=== PATIENT | female | born 1985 | race Caucasian/White ===

== ENCOUNTER 2022-04-25 16:44 | Emergency (ER) | payer BC, MEDICAID, SELFPAY ==
[2022-04-25 16:45] VITALS: BP 159/110; PULSE 74; RESP 15; TEMP 36.7; O2SAT 98; BMI 34.4
--- NOTE | 2022-04-25 16:58 | RAD_ITS ---
EXAM: XR LEFT KNEE, 3 VIEWS CLINICAL INDICATION: fall TECHNIQUE: Three views of the left knee. This report was created using [employer] report generation technology. COMPARISON: None. FINDINGS: BONES/JOINTS: Unremarkable. No acute fracture. No subluxation. Normal alignment. Preservation of the joint space. No sclerotic or destructive changes observed. SOFT TISSUES: Unremarkable. No soft tissue swelling or gas. No radiopaque foreign body. RAD/Knee 3 Views IMPRESSION: Negative left knee x-rays. Electronically Signed: Luca Perera MD at 17:32 EST ,
--- NOTE | 2022-04-25 17:08 | EDS_ITS ---
HPI <TONI Mckeon - Last Filed: 04/25/22 19:11> History of Present Illness Chief Complaint: Lower Extremity Injury Narrative Narrative: Patient presents today with pain to her left knee and left ankle after falling down 17 of her steps at home yesterday. She said she recently ripped the carpet off of her steps and they are now slippery. She also states that her right pinky finger nail is almost ripped off along with her left middle finger nail. S he denies hitting her head, use of blood thinners, loss of consciousness, neck pain, and back pain. PFSH <TONI Mckeon - Last Filed: 04/25/22 19:11> PFSH Home Medications bupropion HCl 150 mg tablet,12 hr sustained-release (Wellbutrin SR) 150 mg PO DAILY 08/31/16 [History Last Taken Unknown] ciprofloxacin HCl 500 mg tablet 500 mg PO BID ##14 08/31/16 [Rx Last Taken Unknown] phenazopyridine 200 mg tablet (Pyridium) 200 mg PO TID ##10 08/31/16 [Rx Last Taken Unknown] Allergy/AdvReac Type Severity Reaction Status Date / Time No Known Allergies Allergy Verified 04/25/22 17:31 Surgical History (Updated 04/25/22 @ 17:30 by Lou Gauthier) Hx of section Social History Smoking Status: Current every day smoker tobacco type: e-cigarettes ROS <TONI Mckeon Last Filed: 04/25/22 19:11> ROS ED Constitutional Constitutional ED: Denies chills, fever(s) or sweats Eyes Eyes: Denies blurry vision or change in vision ENT ENT ED: Denies rhinorrhea or sore throat Cardiovascular Cardiovascular: Denies chest pain, palpitations or racing heartbeat Respiratory/Chest Respiratory/Chest: Denies cough, dyspnea or dyspnea on exertion Gastrointestinal Gastrointestinal: Denies abdominal pain, nausea or vomiting Genitourinary Genitourinary ED: Denies dysuria, hematuria or urinary frequency Musculoskeletal Musculoskeletal: Reports arthralgias and myalgias; Denies back pain or neck pain Integumentary Denies abscess, Abrasions or rash Neurologic Neurologic: Denies headache(s), paresthesias or weakness Psychiatric Psychiatric: Denies anxiety, depression or suicidal ideation EXAM <TONI Mckeon - Last Filed: 04/25/22 19:11> Physical Exam Const Vital Signs: 04/25/22 16:45 Temperature 98.0 F Temperature Source Temporal Pulse Rate 74 Respiratory Rate 15 Blood Pressure 159/110 H Blood Pressure Mean 126 Pulse Ox 98 Oxygen Delivery Method Room Air Positive well nourished and well developed General Appearance ED: well developed and NAD HEENT Reports moist mucous membranes Eyes PERRL and EOMs intact bilaterally Neck no lymphadenopathy Resp normal respiratory effort and clear to auscultation bilaterally Cardio regular rate, regular rhythm and no murmurs GI non-tender, non-distended and no masses Palpation: soft Back/Spine Cervical Spine: Negative for cervical spine tenderness Thoracic Spine / Upper Back: Negative for thoracic spinal tenderness Lumbar Spine / Lower Back: Negative for lumbar spinal tenderness Extremity Extremity Narrative: Patient does have edema to her left knee. Patient does have full range of motion in her left knee. Negative anterior drawer test, negative posterior drawer test. Patient has ecchymosis to the lateral portion of her right thigh. Pelvis is stable. No pain with palpation to the left or right greater trochanter. Full range of motion of both hips bilaterally. Left ankle mildly edematous with ecchymosis and full range of motion. DP pulses 2+ bilaterally, sensation intact in lower extremities bilaterally, capillary refill less than 3 seconds bilaterally. Neuro oriented x3, CN's II-XII intact bilaterally and no sensory deficits noted Sensorium / Orientation: alert Motor Exam: strength 5/5 throughout Psych mental status grossly normal Skin no rashes or lesions noted <Dr. Tanner Cisneros MD - Last Filed: 04/25/22 20:01> Physical Exam Const Vital Signs: 04/25/22 16:45 Temperature 98.0 F Temperature Source Temporal Pulse Rate 74 Respiratory Rate 15 Blood Pressure 159/110 H Blood Pressure Mean 126 Pulse Ox 98 Oxygen Delivery Method Room Air MDM <TONI Mckeon - Last Filed: 04/25/22 19:11> [facility] Narrative Medical decision making narrative: Patient presenting today after falling down her stairs yesterday and injuring her left knee and left ankle. Patient is non-toxic appearing and NAD. Patient denies hitting her head or any trauma to her head, therefore, I do not do not feel a head CT is necessary. Patient does have an avulsion to her right pinky fingernail as well as her left middle finger nail underneath her acrylic nails. She currently has these taped and we have encouraged her to keep the tape on that to allow protection while the new nail grows. I have obtained x-rays of her left knee and left ankle. Both of these have been reviewed and interpreted by my self and the attending ED physician and in agreement with radiologist. There is no acute fracture. There is no instability of her knee or ankle joint. There is a small area of ecchymosis to her left foot just above the medial malleolus as well as edema to the ankle. Patient is able to bear weight onto her left ankle. Patient has a grade 1 ankle sprain. I do not think that she needs to be immobilized. I have given her RICE instructions. Patient will be discharged home in stable condition. Patient comfortable with plan. Radiography Diagnostic Testing: Clinical Impression(s) from Imaging Studies Knee X-Ray 04/25/22 16:58 IMPRESSION: Negative left knee x-rays. Electronically Signed: Luca Perera MD at 17:32 EST , Ankle X-Ray 04/25/22 17:15 IMPRESSION: Negative left ankle x-rays. Electronically Signed: Luca Perera MD at 17:33 EST , <Dr. Tanner Cisneros MD - Last Filed: 04/25/22 20:01> [facility] Narrative Medical decision making narrative: Patient presenting today after falling down her stairs yesterday and injuring her left knee and left ankle. Patient is non-toxic appearing and NAD. Patient denies hitting her head or any trauma to her head, therefore, I do not do not feel a head CT is necessary. Patient does have an avulsion to her right pinky fingernail as well as her left middle finger nail underneath her acrylic nails. She currently has these taped and we have encouraged her to keep the tape on that to allow protection while the new nail grows. I have obtained x-rays of her left knee and left ankle. Both of these have been reviewed and interpreted by my self and the attending ED physician and in agreement with radiologist. There is no acute fracture. There is no instability of her knee or ankle joint. There is a small area of ecchymosis to her left foot just above the medial malleolus as well as edema to the ankle. Patient is able to bear weight onto her left ankle. Patient has a grade 1 ankle sprain. I do not think that she needs to be immobilized. I have given her RICE instructions. Patient will be discharged home in stable condition. Patient comfortable with plan. I have personally performed a face to face assessment of the patient and have reviewed the NAHUN Note. I performed a substantive portion of the visit including all aspects of the following. My bailon findings include: Patient sustained a mechanical fall, she is presenting with knee and ankle pain. There is also an avulsion of the nail. On my evaluation she has an avulsion of the nail without any other nailbed injury. She has tenderness over the left knee and left ankle but no instability. X-rays interpreted by me as normal. Patient will be discharged with reassurance Radiography Diagnostic Testing: Clinical Impression(s) from Imaging Studies Knee X-Ray 04/25/22 16:58 IMPRESSION: Negative left knee x-rays. Electronically Signed: Luca Perera MD at 17:32 EST , Ankle X-Ray 04/25/22 17:15 IMPRESSION: Negative left ankle x-rays. Electronically Signed: Luca Perera MD at 17:33 EST , Left knee x-ray interpreted by me as normal Left ankle x-ray interpreted by me as normal Discharge Plan Triage Chief Complaint: Lower Extremity Injury ED Midlevel Provider: Carmen Danielle ED Provider: Tanner Cisneros Dx/Rx/DC Orders Clinical Impression: Contusion of right thigh, Knee pain, left, Nail avulsion, finger, Fall, Contusion of ankle, left, Ankle sprain Instructions: ED RICE Prescriptions: No Action phenazopyridine [Pyridium] 200 MG tablet 200 mg PO TID Qty: 10 0RF ciprofloxacin HCl 500 MG tablet 500 mg PO BID Qty: 14 0RF bupropion HCl [Wellbutrin SR] 150 MG Tab.Er.12h 150 mg PO DAILY Primary Care Provider: Camilo Russo Referrals: Camilo Russo DO [Primary Care Provider] - 3-5 Days Activity Restrictions/Additional Instructions: Please rest your left knee and left ankle and ice it for 10 to 15 minutes 3-4 times a day for the next few days. You can take Tylenol and ibuprofen for pain. Please return if symptoms worsen. Please follow-up with PCP. Disposition Disposition: Home, Self Care Discharge Date/Time: 04/25/22 18:14
--- NOTE | 2022-04-25 17:15 | RAD_ITS ---
EXAM: XR LEFT ANKLE COMPLETE, 3 OR MORE VIEWS CLINICAL INDICATION: fall TECHNIQUE: Frontal, lateral and oblique views of the left ankle. This report was created using [employer] report generation technology. COMPARISON: None. FINDINGS: BONES/JOINTS: Unremarkable. No acute fracture. No subluxation. Normal alignment. Preservation of the joint space. No sclerotic or destructive changes observed. SOFT TISSUES: Unremarkable. No soft tissue swelling or gas. No radiopaque foreign body. RAD/Ankle min 3 Views IMPRESSION: Negative left ankle x-rays. Electronically Signed: Luca Perera MD at 17:33 EST ,
== END 2022-04-25 18:14 | disposition home or self-care (01) ==
PROVIDERS: Emergency Provider Emergency Medicine; PCP Student in an Organized Health Care Education/Training Program; Visit Provider Emergency Medicine
DX: S61.306A Unspecified open wound of right little finger with damage to nail, initial encounter (principal); S93.402A Sprain of unspecified ligament of left ankle, initial encounter; S70.11XA Contusion of right thigh, initial encounter; F17.290 Nicotine dependence, other tobacco product, uncomplicated; M25.562 Pain in left knee; W10.9XXA Fall (on) (from) unspecified stairs and steps, initial encounter
CPT/HCPCS: 73562; 73610; 99282

== ENCOUNTER 2023-04-20 17:05 | Emergency (ER) | payer MEDICAID, SELFPAY ==
[2023-04-20 17:07] VITALS: BP 141/111; PULSE 79; RESP 18; TEMP 35.9; O2SAT 99; BMI 13.5
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
--- NOTE | 2023-04-20 17:13 | RAD_ITS ---
EXAM: XR RIGHT KNEE COMPLETE, 4 OR MORE VIEWS CLINICAL INDICATION: pain TECHNIQUE: Four or more views of the right knee. COMPARISON: No relevant prior studies available. FINDINGS: BONES/JOINTS: No significant abnormality. No acute fracture. No subluxation. Normal alignment. Preservation of the joint space. No sclerotic or destructive changes observed. SOFT TISSUES: No significant abnormality. No soft tissue swelling or gas. No radiopaque foreign body. RAD/Knee 4 or More Views IMPRESSION: Negative right knee x-rays. Electronically Signed: Eagle Charles DO at 18:19 EST ,
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
[2023-04-20] MEDS: 0.9% Normal Saline (1000mL) 1,000 ML 999 ML IV (17:24)
[2023-04-20] MEDS: Ondansetron 4 MG/2 ML Vial IV (17:25)
[2023-04-20] MEDS: Morphine 4 MG/ML Syringe IV (17:25)
--- OUTSIDE RECORDS SUMMARY | 2023-04-20 17:48 | XMS RPT_ITS | CCD ---
Author Name Unknown Address [address] [facility] [address] [place] [id number] Organization [facility] Care Team Providers Care Unisaw Operator Name Role Phone Camilo Colon DO Primary Care Provider [phone] CAMILO COLON Referring Unavailable CAMILO COLON Primary Care Unavailable CAMILO COLNO Attending Unavailable CAMILO COLON Primary Care Unavailable IMELDA LAFLEUR Referring Unavailable CAMILO COLON Primary Care Unavailable CAMILO COLON Primary Care Unavailable IMELDA LAFLEUR Attending Unavailable CAMILO COLON Referring Unavailable CAMILO COLON Primary Care Unavailable CAMILO COLON Primary Care Unavailable VANESSA LUNA Referring Unavailable CAMILO COLON Primary Care Unavailable VANESSA LUNA Attending Unavailable YORDY DE ANDA Referring Unavailable CAMILO COLON Primary Care Unavailable YORDY DE ANDA Attending Unavailable Medications Current Medications Medication Drug Class(es) Dates Sig (Normalized) Sig (Original) nystatin 818490 unt/ml topical cream (1 source) Polyene Antifungal Start: 10-14-2022 End: 10-28-2022 nystatin (MYCOSTATIN) cream Indications: Candidiasis Apply to affected area twice daily for 14 days. 30 g 1 10/14/2022 10/28/2022 Active Completed/Discontinued Medications Medication Drug Class(es) Dates Sig (Normalized) Sig (Original) ascorbic acid 1000 mg oral tablet (8 sources) Vitamin C take 1 tablet by once daily Ascorbic Acid (VITAMIN C) 1,000 mg tablet Take 1,000 mg by mouth once daily. 0 Active Problems Active Problems Problem Classification Problem Date Documented Da te Episodic/Chronic Abdominal pain (2 sources) Lower abdominal pain; Translations: [Lower abdominal pain, unspecified] Onset: 09-05-2023 08-08-2023 Episodic Anxiety disorders (14 sources) Mixed anxiety and depressive disorder; Translations: [Anxiety disorder, unspecified] Onset: 04-13-2015 04-13-2015 Chronic Disorders of teeth and jaw (1 source) Toothache; Translations: [Other specified disorders of teeth and supporting structures] Episodic Immunizations and screening for infectious disease (2 sources) Tuberculosis screening status; Translations: [Encounter for screening for respiratory tuberculosis] Onset: 01-05-2023 12-12-2022 Episodic Mood disorders (1 source) Mood disorders; Translations: [Anxiety and depression] Onset: 04-13-2015 Mycoses (1 source) Candidiasis; Translations: [Candidiasis, unspecified] 10-14-2022 Episodic Other inflammatory condition of skin (1 source) Intertrigo; Translations: [Erythema intertrigo] 11-11-2022 Episodic Other inflammatory condition of skin (1 source) Erythema intertrigo; Translations: [Intertrigo] Onset: 12-09-2022 Episodic Other nutritional; endocrine; and metabolic disorders (2 sources) Excess panniculus of abdomen; Translations: [Localized adiposity] 10-14-2022 Chronic Other nutritional; endocrine; and metabolic disorders (1 source) Localized adiposity; Translations: [Pannus, abdominal] Onset: 12-09-2022 Chronic Other skin disorders (1 source) Skin finding; Translations: [Excessive and redundant skin and subcutaneous tissue] 11-11-2022 Episodic Other skin disorders (1 source) Excessive and redundant skin and subcutaneous tissue; Translations: [Excess skin] Onset: 12-09-2022 Episodic Past or Other Problems Problem Classification Problem Date Documented Da te Episodic/Chronic Coagulation and hemorrhagic disorders (1 source) Spontaneous ecchymoses; Translations: [Easy bruising] Onset: 07-29-2022 Episodic Other screening for suspected conditions (not mental disorders or infectious disease) (2 sources) Patient encounter status; Translations: [Encounter for screening for lipoid disorders] Onset: 07-22-2022 Episodic Results Test Name Value Interpretation Reference Range Facil ity Vital Signs Date Time Vital Sign Value Performing Clinician Chastity salazar 11-11-2022 14:04-0400 Body height 162.6 cm Vanessa Luna APRN.CNP Work Phone: [facility] 11-11-2022 14:04-0400 Body temperature 97.11 [degF] Vanessa Luna KETTLE TENDER.POWDER CUTTING OPERATOR Work Phone: [facility] 11-11-2022 14:04-0400 Body weight 72.12 kg Vanessa Luna KETTLE TENDER.POWDER CUTTING OPERATOR Work Phone: [facility] 11-11-2022 14:04-0400 Diastolic blood pressure 68 mm[Hg] Vanessa Luna KETTLE TENDER.POWDER CUTTING OPERATOR Work Phone: [facility] 11-11-2022 14:04-0400 Heart rate 71 /min Vanessa Luna KETTLE TENDER.POWDER CUTTING OPERATOR Work Phone: [facility] 11-11-2022 14:04-0400 Systolic blood pressure 119 mm[Hg] Vanessa Luna KETTLE TENDER.POWDER CUTTING OPERATOR Work Phone: [facility] 10-14-2022 11:15-0400 Body weight 73.48 kg Yordy De Anda MD Work Phone: [facility] 10-14-2022 11:15-0400 Diastolic blood pressure 78 mm[Hg] Yordy De Anda MD Work Phone: [facility] 10-14-2022 11:15-0400 Heart rate 72 /min Yordy De Anda MD Work Phone: [facility] 10-14-2022 11:15-0400 Respiratory rate 16 /min Yordy De Anda MD Work Phone: [facility] 10-14-2022 11:15-0400 Systolic blood pressure 116 mm[Hg] Yordy De Anda MD Work Phone: [facility] 08-23-2021 18:58-0400 Body temperature 98.29 [degF] Arline Booth APRN.POWDER CUTTING OPERATOR Work Phone: [facility] 08-23-2021 18:58-0400 Diastolic blood pressure 66 mm[Hg] Arline Booth APRN.POWDER CUTTING OPERATOR Work Phone: [facility] 08-23-2021 18:58-0400 Heart rate 77 /min Arline Booth APRN.POWDER CUTTING OPERATOR Work Phone: [facility] 08-23-2021 18:58-0400 Respiratory rate 14 /min Arline Booth APRN.POWDER CUTTING OPERATOR Work Phone: [facility] 08-23-2021 18:58-0400 SaO2% (BldA) [Mass fraction] 98 % Arline Booth APRN.POWDER CUTTING OPERATOR Work Phone: [facility] 08-23-2021 18:58-0400 Systolic blood pressure 112 mm[Hg] Arline Booth APRN.POWDER CUTTING OPERATOR Work Phone: [facility] Encounters Encounter Date Encounter Type Care Provider Facility Start: 01-29-2023 ambulatory Camilo mc DO Work Phone: [facility] Plan of Treatment Date Care Activity Detail Author Start: 2028 PAP TESTING PAP TESTING [facility] Start: 12-12-2022 End: 02-11-2023 BLOOD TB SCREEN BLOOD TB SCREEN Lab Routine Screening for tuberculosis Expected: 12/12/2022, Expires: 02/11/2023 [facility] Work Phone: Immunizations Immunization Date Immunization Notes Care Provider Jaime aguilar 08-22-2020 COVID-19 vaccine, ag e 12+ yr ([employer] - PURPLE TOP) Arline Booth APRN.POWDER CUTTING OPERATOR Work Phone: [facility] Work Phone: 02-18-2017 influenza virus vaccine, unspecified formulation Camilo Colon DO Work Phone: [facility] 02-16-2016 influenza, injectabl e, quadrivalent, contains preservative Arline Booth APRN.POWDER CUTTING OPERATOR Work Phone: [facility] 02-15-2016 influenza, seasonal, injectable Arline Booth APRN.POWDER CUTTING OPERATOR Work Phone: [facility] Work Phone: 01-03-2015 influenza, seasonal, injectable Arline Booth APRN.POWDER CUTTING OPERATOR Work Phone: [facility] Work Phone: Payers Date Payer Category Payer Medicaid [id number] 2022 Medicaid [id number] 2021 Unknown [employer] PPO [id number] 2021-Present [phone] [address] [place] [address] PPO [id number] 2021 Unknown [employer] PPO [id number] 2021-Present [phone] [address] [place] [address] PPO [id number] 2021 Unknown [id number] Social History Date Type Detail Facility Start: 08-23-2021 End: 07-29-2022 Tobacco smoking status NHIS Never smoked tobacco [facility] Start: 08-23-2021 End: 11-11-2022 Alcohol intake Current drinker of alcohol (finding) [facility] Start: 08-23-2021 End: 07-29-2022 Tobacco Comment vaping [facility] Start: 1985 Sex Assigned At Female [facility] Start: 08-13-2021 End: 08-23-2021 Exposure to SARS-CoV-2 (event) Not sure [facility] Start: 08-23-2021 End: 07-29-2022 Tobacco use and exposure Smokeless tobacco non-user [facility] Start: 06-17-2022 History SDOH Alcohol Frequency 2 [facility] Start: 06-17-2022 History SDOH Alcohol Std Drinks 1 [facility] Start: 06-17-2022 History SDOH Social Connections Phone 4 [facility] Start: 06-17-2022 History SDOH Social Connections Meetings 3 [facility] Start: 06-17-2022 History SDOH Social Connections Living 5 [facility] Start: 06-17-2022 History SDOH Physica l Activity MPS 15 [facility] Start: 06-17-2022 History SDOH Food Scarcity 98 [facility] Start: 06-17-2022 End: 10-13-2022 History of Social function [facility] Start: 06-17-2022 End: 10-13-2022 Social connection and isolation panel [facility] Do you belong to any clubs or organizations such as orthodox groups, unions, fraternal or athletic groups, or school groups? Yes [facility] Are you now , , , , never or living with a partner? [facility] How often to you hav e a drink containing alcohol? Monthly or less [facility] How many standard dr inks containing alcohol do you have on a typical day? 1 or 2 [facility] How often do you hav e 6 or more drinks on 1 occasion? Never [facility] How hard is it for y ou to pay for the very basics like food, housing, medical care, and heating Somewhat hard [facility] Adult Depression Scr eening Assessment 2 [facility] Do you feel stress - tense, restless, nervous, or anxious, or unable to sleep at night because your mind is troubled all the time - these days [OSQ] Very much [facility] (I/We) worried wheth er (my/our) food would run out before (I/we) got money to buy more. Sometimes true [facility] The food that (I/we) bought just didn't last, and (I/we) didn't have money to get more. DK or Refused [facility] At any time in the p ast 12 months, were you homeless or living in [facility] [including now]? No [facility] Start: 12-10-2020 Gender identity Identifies as female gender (finding) [facility] Start: 12-10-2020 Sexual orientation Bisexual (finding ) [facility] Clinical Notes 08-23-2021 to 01-29-2023 Telephone Encounter - Amira Barreto LPN - 01/29/2023 10:58 AM EDTTelephone Encounter - Camilo Colon DO - 01/28/2023 10:26 PM EDTTelephone Encounter - Olena Khan - 01/29/2023 7:56 AM EDT Note Date & Type Note Facility 01-29-2023 Miscellaneous Notes Spoke with pt will come pick this up tonight . Took to [facility] for fruit picker. Form signed Camilo Colon DO Physical form received and placed on Dr. Colon's desk. documented in this encounter [facility] 01-29-2023 Miscellaneous Notes Looks like form is completed. SEE TE 01/27. Olena Khan MA documented in this encounter [facility] 12-12-2022 Miscellaneous Notes Notified. Alba Reese Ma Order placed for TB blood testing Please inform patient Camilo Colon DO Patient sent my chart message requesting TB lab draw for new job. Kelsea Mayes documented in this encounter [facility] 11-11-2022 Note HNO ID: [id number] Author: Vanessa Luna APRN.GINO Service: ? Author Type: Nurse Practitioner Type: Progress Notes Filed: 11/11/2022 2:46 PM Note Text: Plastic Surgery Note CC: excess skin HPI: Emma is a 37 year old female presenting with excess skin of abdomen after massive weight loss. Patient suffers from recurrent infections under skin folds. She has tried nystatin powder that was prescribed, and she has been using this for about a month. Patient has tried applying lotion to keep moisturized when dry in the winter for years. She also has lower abdominal pain from the skin pulling, rated 8/10,and characterized as burning, throbbing, sometimes sharp . Compression helps but makes rashes worse. Patient lost approximately 100 lbs in 2011. Patient was about 223 lbs last March and started additional weight loss in which now she weighs 159 lbs and does not plan to lose any more weight. Bariatric surgery yes [] No [x] Type:......n/a.......... Date:......n/a....... Pounds lost:.......150......... Over which period:.......8 months......... Actual weight:.....159 lbs......... How long weight was stable for:.....1-2 months....... Complaints:.....excess skin, intertrigo, pain from excess skin pulling, trouble performing ADLs, trouble with fitting clothing......... Nutritional status checked? yes [x] No [] Who:......[facility].......... Date:......11/2020....... Hemoglobin A1C (%) Date Value 07/29/2022 4.7 Last 10 Encounter BP Readings: Date: BP: 11/11/2022 119/68 10/14/2022 116/78 07/29/2022 110/64 08/23/2021 112/66 12/11/2020 104/70 04/05/2019 100/64 04/04/2019 108/70 12/10/2018 94/68 06/04/2018 112/74 12/10/2017 104/70 CBC Latest Ref Rng AND Units 08/13/2016 12/11/2020 07/22/2022 WBC 3.70 - 11.00 k/uL 4.73 4.62 4.83 RBC 3.90 - 5.20 m/uL 4.56 4.08 4.38 HEMOGLOBIN 11.5 - 15.5 g/dL 13.6 12.8 13.3 HEMOGLOBIN, KEVIN 12.0 - 16.0 g/dL - - - HEMATOCRIT 36.0 - 46.0 % 41.7 37.3 39.8 MCV 80.0 - 100.0 fL 91.4 91.4 90.9 MCV, KEVIN 81 - 99 fL - - - MCH 26.0 - 34.0 pg 29.8 31.4 30.4 MCH, KEVIN 27 - 31 pg - - - MCHC 30.5 - 36.0 g/dL 32.6 34.3 33.4 MCHC, KEVIN 33 - 37 g/dL - - - RDW, KEVIN 11.5 - 14.5 % - - - RDW-CV 11.5 - 15.0 % 12.2 12.2 12.4 PLATELETS 150 - 400 k/uL 235 202 223 MPV 9.0 - 12.7 fL 12.0 11.4 11.5 NEUT%, KEVIN 42.2 - 75.2 % - - - MONO%, KEVIN 1.7 - 9.3 % - - - EOS%, KEVIN 0.0 - 6.0 % - - - BASO% % 0.4 0.4 0.6 BASO%, KEVIN 0.0 - 2.0 % - - - ABS NEUT (ANC) 1.45 - 7.50 k/uL 2.86 2.59 2.44 ABS NEUT, KEVIN 2.0 - 8.1 k/uL - - - ABS LYMP, KEVIN 1.0 - 5.5 k/uL - - - ABS LYMPH 1.00 - 4.00 k/uL 1.49 1.56 1.94 ABS MONO <0.87 k/uL 0.29 0.36 0.35 ABS MONO, KEVIN 0.1 - 1.0 k/uL - - - ABS EOS, KEVIN 0.0 - 0.2 k/uL - - - ABS EOSIN <0.46 k/uL 0.07 0.08 0.06 ABS BASO <0.11 k/uL 0.02 <0.03 0.03 ABS BASO, KEVIN 0.0 - 0.1 k/uL - - - NRBC /100 WBC 0 - 0.0 DIFF TYPE - Auto Diff Auto Diff - CMP Latest Ref Rng AND Units 09/06/2015 12/11/2020 07/22/2022 SODIUM 136 - 144 mmol/L 140 139 140 SODIUM, KEVIN 136 - 145 mmol/L - - - SODIUM, KEVIN 136 - 145 mmol/L - - - POTASSIUM 3.7 - 5.1 mmol/L 4.6 4.2 4.1 POTASSIUM, KEVIN 3.5 - 5.1 mmol/L - - - CHLORIDE 97 - 105 mmol/L 103 104 105 CHLORIDE, KEVIN 98 - 107 mmol/L - - - CO2 22 - 30 mmol/L 25 24 25 CO2, KEVIN 21.0 - 32.0 mmol/L - - - GLUCOSE 74 - 99 mg/dL 83 79 84 GLUCOSE, KEVIN 70 - 99 mg/dL - - - BUN 7 - 21 mg/dL 10 9 10 BUN, KEVIN 7 - 18 mg/dL - - - CREATININE 0.58 - 0.96 mg/dL 0.70 0.77 0.75 CREATININE, KEVIN 0.6 - 1.0 mg/dL - - - EGFR >=60 mL/min/1.73m? - - 106 EGFR-ALL OTHER RACES . >60 >60 - EGFR- - >60 >60 - PROTEIN, TOTAL 6.3 - 8.0 g/dL 7.5 7.3 7.3 TOTAL PROTEIN, KEVIN 6.4 - 8.2 g/dL - - - ALBUMIN 3.9 - 4.9 g/dL 4.6 4.3 4.6 ALBUMIN, KEVIN 3.4 - 5.0 g/dL - - - CALCIUM, KEVIN 8.5 - 10.1 mg/dL - - - CALCIUM, TOTAL 8.5 - 10.2 mg/dL 9.3 9.6 9.6 BILIRUBIN, TOTAL 0.2 - 1.3 mg/dL 0.7 0.4 0.5 AST 13 - 35 U/L 20 16 18 AST, KEVIN 15 - 37 U/L - - - ALT 7 - 38 U/L 10 11 11 ALT, KEVIN 30 - 65 U/L - - - ALKALINE PHOSPHATASE 34 - 123 U/L 55 52 59 YES NO Smoking, vaping, nicotine, cannabis [x] [] Cigarettes/ day.... Vapes daily ? Diabetes [] [x] []Type 1? []Type 2 ?Last A1c:..... Systemic inflammatory diseases [] [x] []RA []Gout []Other... Hypertension [x] [] Meds:....... Heart disease or pacemaker [] [x] ............ Family history blood clots [] [x] Personal history blood clots [] [x] Anticoagulation (aspirin, coumadin, xarelto,etc) [] [x] What........... Reason:........... Immunosuppressants (steroid, biologic meds infusion, etc) [] [x] What........... Reason:........... Pt AGAINST blood transfusion? [] [x] Patient takes vitamin C, D, and biotin. Patient works as a SENIOR FUND ACCOUNTANT at outside facility. Para: 3, h/o 3 c-sections Objective: PAST MEDICAL HISTORY Diagnosis Date Anxiety and depression Inter (more content not included)... [facility] 11-11-2022 History of Present illness Narrative Plastic Surgery Note CC: excess skin HPI: Emma is a 37 year old female presenting with excess skin of abdomen after massive weight loss. Patient suffers from recurrent infections under skin folds. She has tried nystatin powder that was prescribed, and she has been using this for about a month. Patient has tried applying lotion to keep moisturized when dry in the winter for years. She also has lower abdominal pain from the skin pulling, rated 8/10,and characterized as burning, throbbing, sometimes sharp . Compression helps but makes rashes worse. Patient lost approximately 100 lbs in 2011. Patient was about 223 lbs last March and started additional weight loss in which now she weighs 159 lbs and does not plan to lose any more weight. Bariatric surgery yes [] No [x] Type:......n/a.......... Date:......n/a....... Pounds lost:.......150......... Over which period:.......8 months......... Actual weight:.....159 lbs......... How long weight was stable for:.....1-2 months....... Complaints:.....excess skin, intertrigo, pain from excess skin pulling, trouble performing ADLs, trouble with fitting clothing......... Nutritional status checked? yes [x] No [] Who:......[facility].......... Date:......11/2020....... Hemoglobin A1C (%) Date Value 07/29/2022 4.7 Last 10 Encounter BP Readings: Date: BP: 11/11/2022 119/68 10/14/2022 116/78 07/29/2022 110/64 08/23/2021 112/66 12/11/2020 104/70 04/05/2019 100/64 04/04/2019 108/70 12/10/2018 94/68 06/04/2018 112/74 12/10/2017 104/70 CBC Latest Ref Rng & Units 08/13/2016 12/11/2020 07/22/2022 WBC 3.70 - 11.00 k/uL 4.73 4.62 4.83 RBC 3.90 - 5.20 m/uL 4.56 4.08 4.38 HEMOGLOBIN 11.5 - 15.5 g/dL 13.6 12.8 13.3 HEMOGLOBIN, KEVIN 12.0 - 16.0 g/dL - - - HEMATOCRIT 36.0 - 46.0 % 41.7 37.3 39.8 MCV 80.0 - 100.0 fL 91.4 91.4 90.9 MCV, KEVIN 81 - 99 fL - - - MCH 26.0 - 34.0 pg 29.8 31.4 30.4 MCH, KEVIN 27 - 31 pg - - - MCHC 30.5 - 36.0 g/dL 32.6 34.3 33.4 MCHC, KEVIN 33 - 37 g/dL - - - RDW, KEVIN 11.5 - 14.5 % - - - RDW-CV 11.5 - 15.0 % 12.2 12.2 12.4 PLATELETS 150 - 400 k/uL 235 202 223 MPV 9.0 - 12.7 fL 12.0 11.4 11.5 NEUT%, KEVIN 42.2 - 75.2 % - - - MONO%, KEVIN 1.7 - 9.3 % - - - EOS%, KEVIN 0.0 - 6.0 % - - - BASO% % 0.4 0.4 0.6 BASO%, KEVIN 0.0 - 2.0 % - - - ABS NEUT (ANC) 1.45 - 7.50 k/uL 2.86 2.59 2.44 ABS NEUT, KEVIN 2.0 - 8.1 k/uL - - - ABS LYMP, KEVIN 1.0 - 5.5 k/uL - - - ABS LYMPH 1.00 - 4.00 k/uL 1.49 1.56 1.94 ABS MONO <0.87 k/uL 0.29 0.36 0.35 ABS MONO, KEVIN 0.1 - 1.0 k/uL - - - ABS EOS, KEVIN 0.0 - 0.2 k/uL - - - ABS EOSIN <0.46 k/uL 0.07 0.08 0.06 ABS BASO <0.11 k/uL 0.02 <0.03 0.03 ABS BASO, KEVIN 0.0 - 0.1 k/uL - - - NRBC /100 WBC 0 - 0.0 DIFF TYPE - Auto Diff Auto Diff - CMP Latest Ref Rng & Units 09/06/2015 12/11/2020 07/22/2022 SODIUM 136 - 144 mmol/L 140 139 140 SODIUM, KEVIN 136 - 145 mmol/L - - - SODIUM, KEVIN 136 - 145 mmol/L - - - POTASSIUM 3.7 - 5.1 mmol/L 4.6 4.2 4.1 POTASSIUM, KEVIN 3.5 - 5.1 mmol/L - - - CHLORIDE 97 - 105 mmol/L 103 104 105 CHLORIDE, KEVIN 98 - 107 mmol/L - - - CO2 22 - 30 mmol/L 25 24 25 CO2, KEVIN 21.0 - 32.0 mmol/L - - - GLUCOSE 74 - 99 mg/dL 83 79 84 GLUCOSE, KEVIN 70 - 99 mg/dL - - - BUN 7 - 21 mg/dL 10 9 10 BUN, KEVIN 7 - 18 mg/dL - - - CREATININE 0.58 - 0.96 mg/dL 0.70 0.77 0.75 CREATININE, KEVIN 0.6 - 1.0 mg/dL - - - EGFR >=60 mL/min/1.73m - - 106 EGFR-ALL OTHER RACES . >60 >60 - EGFR- - >60 >60 - PROTEIN, TOTAL 6.3 - 8.0 g/dL 7.5 7.3 7.3 TOTAL PROTEIN, KEVIN 6.4 - 8.2 g/dL - - - ALBUMIN 3.9 - 4.9 g/dL 4.6 4.3 4.6 ALBUMIN, KEVIN 3.4 - 5.0 g/dL - - - CALCIUM, KEVIN 8.5 - 10.1 mg/dL - - - CALCIUM, TOTAL 8.5 - 10.2 mg/dL 9.3 9.6 9.6 BILIRUBIN, TOTAL 0.2 - 1.3 mg/dL 0.7 0.4 0.5 AST 13 - 35 U/L 20 16 18 AST, KEVIN 15 - 37 U/L - - - ALT 7 - 38 U/L 10 11 11 ALT, KEVIN 30 - 65 U/L - - - ALKALINE PHOSPHATASE 34 - 123 U/L 55 52 59 YES NO Smoking, vaping, nicotine, cannabis [x] [] Cigarettes/ day.... Vapes daily ? Diabetes [] [x] []Type 1? []Type 2 ?Last A1c:..... Systemic inflammatory diseases [] [x] []RA []Gout []Other... Hypertension [x] [] Meds:....... Heart disease or pacemaker [] [x] ............ Family history blood clots [] [x] Personal history blood clots [] [x] Anticoagulation (aspirin, coumadin, xarelto,etc) [] [x] What........... Reason:........... Immunosuppressants (steroid, biologic meds infusion, etc) [] [x] What........... Reason:........... Pt AGAINST blood transfusion? [] [x] Patient takes vitamin C, D, and biotin. Patient works as a SENIOR FUND ACCOUNTANT at outside facility. Para: 3, h/o 3 c-sections Objective: PAST MEDICAL HISTORY Diagnosis Date Anxiety and depression Interstitial cystitis 2009 PAST SURGICAL HISTORY Procedure Laterality Date DELIVERY ONLY 2005 , low cervical DELIVERY ONLY 2006 , low cervical DELIVERY ONLY 2012 EXPLORATORY LAPAROTOMY, CELIOTOMY-SP 2011 Current Outpatient Medications Medication Sig Dispense Refill Ascorbic Acid (VITAMIN C) 1,000 mg tablet Take 1,000 mg by mouth once daily. cholecalciferol (VITAMIN D) 1,000 unit tab tablet Take 2,000 Units by mouth once daily. escitalopram oxalate (LEXAPRO) 10 mg tablet Take 1 tablet by mouth once daily. 1 tablet PO once daily 90 tablet 3 buPROPion XL (WELLBUTRIN XL) 300 mg 24 hr tablet Take 1 tablet by mouth once daily. 90 tablet 3 No current facility-administered medications for this visit. BP 119/68 Pulse 71 Temp 36.2 C (97.1 F) Ht 162.6 cm (5' 4 ) Wt 72.1 kg (159 lb) LMP 08/13/2021 BMI 27.29 kg/m ALLERGIES No Known Allergies ROS: All negative except for: GENERAL: []weight loss []malaise []fevers HEENT: []frequent or significant headaches []changes in hearing []change in vision []nose bleeds []other nasal problems NECK: []lumps []goiter []pain and significant neck swelling RESPIRATORY: []cough []hemoptysis []wheezing []COPD []dyspnea []shortness of breath CARDIOVASCULAR: []chest pain []leg swelling []hypertension []CHF []palpitations GI: []nausea []vomiting []diarrhea MUSCULOSKELETAL: see HPI SKIN: [] skin lesions []rash []itching PSYCH: []sleep disturbance []mood disorder []recent psychosocial stressors HEMATOLOGY/LYMPHOLOGY: []prolonged bleeding []bruising easily []swollen nodes ENDOCRINE: []cold intolerance []heat intolerance []polyuria []polydipsia []goiter PE: Alert, awake in NAD Excess skin of upper and lower abdominal quadrants Striae of upper quadrants present Suprapubic scar from previous well healed Rectus diastasis present No tenderness upon palpation A/P: Excess skin Counseled on smoking cessation. Discussed christina reina abdominoplasty including procedure, benefits vs risks, and post op course. Abdominal CT ordered. Pre op labs ordered. Photos taken. Will submit when nicotine test is negative. Patient is going to notify office when test is negative. 30 Minutes total visit spent face to face with patient. Greater than 50% of the time was spent for counseling and coordination of care, discussing treatment options and recommendations. Vanessa Luna APRN.CNP November 11, 2022 2:19 PM documented in this encounter [facility] 10-14-2022 Note HNO ID: [id number] Author: Yordy De Anda MD Service: ? Author Type: Physician Type: Progress Notes Filed: 10/14/2022 8:27 PM Note Text: Chief Complaint Patient presents with: Consult HPI Emma Poon is a 37 year old female who presents here today for weight loss/needing skin removal referral. Office visit - For about the past 6 months patient has been doing intermittent fasting and has lost just over 50 lbs. With the weight loss she now has extra skin on the lower abdomen and has been getting yeast infections under the skin folds. Has been getting sores and worse with the hotter weather. Past medical history, appointments, medications, allergies reviewed. Previous Medical History PAST MEDICAL HISTORY Diagnosis Date Anxiety and depression Interstitial cystitis 2009 Previous Surgical History PAST SURGICAL HISTORY Procedure Laterality Date DELIVERY ONLY 2004 , low cervical DELIVERY ONLY 2006 , low cervical DELIVERY ONLY 2013 EXPLORATORY LAPAROTOMY, CELIOTOMY-SP 2012 Family History FAMILY HISTORY Problem Relation Age of Onset None Mother Kidney failure Mother 62 None Father Cancer Maternal Grandfather throat Emphysema Paternal Grandfather Patient Allergies ALLERGIES No Known Allergies Current Medications Current Outpatient Medications on File Prior to Visit Medication Sig Ascorbic Acid (VITAMIN C) 1,000 mg tablet Take 1,000 mg by mouth once daily. cholecalciferol (VITAMIN D) 1,000 unit tab tablet Take 2,000 Units by mouth once daily. escitalopram oxalate (LEXAPRO) 10 mg tablet Take 1 tablet by mouth once daily. 1 tablet PO once daily buPROPion XL (WELLBUTRIN XL) 300 mg 24 hr tablet Take 1 tablet by mouth once daily. No current facility-administered medications on file prior to visit. Social History Social History Tobacco Use Smoking status: Never Smokeless tobacco: Never Tobacco comments: vaping Substance Use Topics Alcohol use: Yes Drug use: No Review of Symptoms REVIEW OF SYSTEMS See HPI EXAM: BP 116/78 (BP Site: Left Arm, BP Position: Sitting, BP Cuff Size: Regular Adult) Pulse 72 Resp 16 Wt 73.5 kg (162 lb) LMP 08/13/2021 BMI 28.00 kg/m? General Appearance: Well appearing, alert, in no acute distress, well-hydrated, well nourished.. Skin: Skin color, texture, turgor normal, - has mild yeast infection on the lower edge of the panus. Abdomen: Abdomen soft, non-tender. Bowel sounds normal. Health Maintenance List HEPATITIS B(1 of 3 - 3-dose series) Never done HEPATITIS C SCREENING Never done HIV SCREENING Never done DTAP,TDAP,TD(1 - Tdap) Never done HPV TESTING Never done PAP TESTING due on 06/18/2017 COVID-19 VACCINE(3 - Pfizer series) due on 11/07/2020 INFLUENZA(1) due on 12/05/2022 HPV VACCINE Aged Out Data reviewed A/P ASSESSMENT/PLAN: 1. Pannus, abdominal - ICD9: 278.1, ICD10: E65 (primary diagnosis) - CONSULT TO PLASTIC SURGERY 2. Candidiasis - ICD9: 112.9, ICD10: B37.9 Tx with - NYSTATIN 100,000 UNIT/GRAM TOPICAL CREAM Requested Prescriptions Signed Prescriptions Disp Refills nystatin (MYCOSTATIN) cream 30 g 1 Sig: Apply to affected area twice daily for 14 days. F/u as needed. Yordy De Anda MD [facility] 10-14-2022 History of Present illness Narrative Chief Complaint Patient presents with: Consult HPI Emma Poon is a 37 year old female who presents here today for weight loss/needing skin removal referral. Office visit - For about the past 6 months patient has been doing intermittent fasting and has lost just over 50 lbs. With the weight loss she now has extra skin on the lower abdomen and has been getting yeast infections under the skin folds. Has been getting sores and worse with the hotter weather. Past medical history, appointments, medications, allergies reviewed. Previous Medical History PAST MEDICAL HISTORY Diagnosis Date Anxiety and depression Interstitial cystitis 2009 Previous Surgical History PAST SURGICAL HISTORY Procedure Laterality Date DELIVERY ONLY 2004 , low cervical DELIVERY ONLY 2006 , low cervical DELIVERY ONLY 2013 EXPLORATORY LAPAROTOMY, CELIOTOMY-SP 2012 Family History FAMILY HISTORY Problem Relation Age of Onset None Mother Kidney failure Mother 62 None Father Cancer Maternal Grandfather throat Emphysema Paternal Grandfather Patient Allergies ALLERGIES No Known Allergies Current Medications Current Outpatient Medications on File Prior to Visit Medication Sig Ascorbic Acid (VITAMIN C) 1,000 mg tablet Take 1,000 mg by mouth once daily. cholecalciferol (VITAMIN D) 1,000 unit tab tablet Take 2,000 Units by mouth once daily. escitalopram oxalate (LEXAPRO) 10 mg tablet Take 1 tablet by mouth once daily. 1 tablet PO once daily buPROPion XL (WELLBUTRIN XL) 300 mg 24 hr tablet Take 1 tablet by mouth once daily. No current facility-administered medications on file prior to visit. Social History Social History Tobacco Use Smoking status: Never Smokeless tobacco: Never Tobacco comments: vaping Substance Use Topics Alcohol use: Yes Drug use: No Review of Symptoms REVIEW OF SYSTEMS See HPI EXAM: BP 116/78 (BP Site: Left Arm, BP Position: Sitting, BP Cuff Size: Regular Adult) Pulse 72 Resp 16 Wt 73.5 kg (162 lb) LMP 08/13/2021 BMI 28.00 kg/m General Appearance: Well appearing, alert, in no acute distress, well-hydrated, well nourished.. Skin: Skin color, texture, turgor normal, - has mild yeast infection on the lower edge of the panus. Abdomen: Abdomen soft, non-tender. Bowel sounds normal. Health Maintenance List HEPATITIS B(1 of 3 - 3-dose series) Never done HEPATITIS C SCREENING Never done HIV SCREENING Never done DTAP,TDAP,TD(1 - Tdap) Never done HPV TESTING Never done PAP TESTING due on 06/18/2017 COVID-19 VACCINE(3 - Pfizer series) due on 11/07/2020 INFLUENZA(1) due on 12/05/2022 HPV VACCINE Aged Out Data reviewed A/P ASSESSMENT/PLAN: 1. Pannus, abdominal - ICD9: 278.1, ICD10: E65 (primary diagnosis) - CONSULT TO PLASTIC SURGERY 2. Candidiasis - ICD9: 112.9, ICD10: B37.9 Tx with - NYSTATIN 100,000 UNIT/GRAM TOPICAL CREAM Requested Prescriptions Signed Prescriptions Disp Refills nystatin (MYCOSTATIN) cream 30 g 1 Sig: Apply to affected area twice daily for 14 days. F/u as needed. Yordy De Anda MD documented in this encounter [facility] 08-05-2022 Miscellaneous Notes Pt notified and verbalized understanding. Med list updated. Yesenia Cole MA Message left to return call. Please inform patient that her labs show that her vitamin C is very low normal and her vitamin D is low. Would recommend taking 1000 mg a day of Vitamin C and 2000 international unit(s) a day of vitamin D3 with a meal daily. These both can contribute to her easy bruising Camilo Colon DO documented in this encounter [facility] 07-29-2022 Note HNO ID: [id number] Author: aCmilo Colon DO Service: ? Author Type: Physician Type: Progress Notes Filed: 07/29/2022 2:58 PM Note Text: CC: Emma Poon is a 37 year old female who presents to the office for physical. HPI: Anxiety, depression, recently increased depressed mood and less anxiety, feels that her lexapro and wellbutrin need adjusted differently although does tolerate both of these medications well. No SI or HI. Is going through a divorce from her and her 18 year old son is graduating high school and going to . Easy bruising arms and legs and back and buttock, no known trauma. No hx of bleeding disorder or clotting disorder Hemoglobin (g/dL) Date Value 07/22/2022 13.3 12/11/2020 12.8 Hematocrit (%) Date Value 07/22/2022 39.8 12/11/2020 37.3 WBC (k/uL) Date Value 07/22/2022 4.83 12/11/2020 4.62 PAST MEDICAL HISTORY Diagnosis Date Anxiety and depression Interstitial cystitis 2009 PAST SURGICAL HISTORY Procedure Laterality Date DELIVERY ONLY 2004 , low cervical DELIVERY ONLY 2006 , low cervical DELIVERY ONLY 2013 EXPLORATORY LAPAROTOMY, CELIOTOMY-SP 2012 Social History: Social History Tobacco Use Smoking status: Never Smokeless tobacco: Never Tobacco comments: vaping Substance Use Topics Alcohol use: Yes Drug use: No FAMILY HISTORY Problem Relation Age of Onset None Mother Kidney failure Mother 62 None Father Cancer Maternal Grandfather throat Emphysema Paternal Grandfather Current Outpatient prescriptions: escitalopram oxalate (LEXAPRO) 10 mg tablet Take 1 tablet by mouth once daily. 1 tablet PO once daily buPROPion XL (WELLBUTRIN XL) 300 mg 24 hr tablet Take 1 tablet by mouth once daily. Allergies: ALLERGIES No Known Allergies ROS: See HPI PE: 07/29/22 1123 BP: 110/64 Pulse: 80 Resp: 12 Temp: 36.1 ?C (97 ?F) TempSrc: Right Tympanic Weight: 79.8 kg (176 lb) Height: 162 cm (5' 3.78 ) Gen: AANDO, NAD, non-toxic appearing, Pleasant, cooperative HEENT: NT/AC, PERRLA, EOMs intact b/l, nares clear and patent b/l, pharynx without erythema, exudate or lesions. Uvula midline. EACs without erythema or debris. TMs pearly lizama with intact landmarks b/l. Neck: supple, No cervical LAD, no thyromegaly, no carotid bruits CV: RRR, normal S1 and S2, no murmurs, no gallops, no rubs, Pulses 2+ and symmetric in UE and LE b/l Lungs: normal respiratory effort, CTA b/l, no wheezing or rhonchi or rales Abd: soft, NT, ND, +BS, no hepatosplenomegaly MS: FROM all 4 extremities Neuro: CN II-XII intact b/l, strength 5/5 b/l UE and LE, DTRs 2/4 UE and LE, sensation intact. Skin: warm, dry, intact, No rashes or lesions on exposed skin. No edema Multiple tattoos and piercings ASSESSMENT/PLAN: 1. Easy bruising - ICD9: 782.7, ICD10: R23.3 (primary diagnosis) Recheck labs as ordered. - VITAMIN C - IRON + TIBC - ACTIVATED PTT - PROTHROMBIN TIME/PT - VITAMIN D 25 HYDROXY - VITAMIN B12 BLOOD 2. Well adult exam - ICD9: V70.0, ICD10: Z00.00 - Counseled on healthy diet and regular exercise - Calcium intake with supplements or by diet of 1000 mg/day for under 50, 1581-1332 mg/day for 50+ - HGB A1C - VITAMIN D 25 HYDROXY - VITAMIN B12 BLOOD 3. Anxiety and depression - ICD9: 300.00, 311, ICD10: F41.9, F32.A Adjust medications and f/u prn - ESCITALOPRAM 10 MG TABLET - BUPROPION XL 300 MG 24 HR TAB Camilo Colon DO To ER if develops chest pain, shortness of breath, or severe worsening of symptoms. Discussed risks, benefits, alternatives, and potential side effects of medications. Patient expressed understanding and agreed with the plan. Camilo Colon DO [address] [place] [address] [facility] 06-17-2022 Note HNO ID: [id number] Author: Imelda Lafleur APRN.POWDER CUTTING OPERATOR Service: ? Author Type: Nurse Practitioner Type: Progress Notes Filed: 06/17/2022 12:57 PM Note Text: Chief Complaint Patient presents with: Telemedicine Patient was offered a virtual/telemedicine appointment in lieu of an office visit due to recommendations to reduce patient exposure to COVID-19. Video was used for evaluation of this patient. Patient is aware of limitations of performing the visit without a face to face visit in the office setting and agrees. Patient agrees to the visit: Yes Patient Location: [facility] Emma Poon is a 37 year old female who is contacted today for a virtual visit This is an established patient of Dr. Camilo Colon DO Reports: Pt presents today for a medication check to get medication refills. She is currently taking lexapro and wellbutrin. Refers that she is out of medication for the last two weeks. Refers that her anxiety has been through the roof. Refers that she is going through a divorce the the last couple of weeks. Refers that is always tired. Refers that she has lost about 30# and is more active. Intentional. No SI/HI. No side effects to the medication. Has been contemplating returning to counseling. Past medical history, appointments, medications, allergies reviewed 06/17/2022 Previous Medical History PAST MEDICAL HISTORY Diagnosis Date Anxiety and depression Interstitial cystitis 2009 Previous Surgical History PAST SURGICAL HISTORY Procedure Laterality Date DELIVERY ONLY 2004 , low cervical DELIVERY ONLY 2006 , low cervical DELIVERY ONLY 2013 EXPLORATORY LAPAROTOMY, CELIOTOMY-SP 2012 Family History FAMILY HISTORY Problem Relation Age of Onset None Mother None Father Cancer Maternal Grandfather throat Emphysema Paternal Grandfather Patient Allergies ALLERGIES No Known Allergies Current Medications Current Outpatient Medications on File Prior to Visit Medication Sig escitalopram oxalate (LEXAPRO) 20 mg tablet Take 1 tablet by mouth once daily. 1 tablet PO once daily buPROPion XL (WELLBUTRIN XL) 150 mg 24 hr tablet Take 1 tablet by mouth once daily. cyclobenzaprine (FLEXERIL) 10 mg tablet Take 1 tablet by mouth three times daily as needed for Muscle Spasm. (Patient not taking: Reported on 08/23/2021 ) No current facility-administered medications on file prior to visit. Social History Social History Tobacco Use Smoking status: Never Smokeless tobacco: Never Tobacco comments: vaping Substance Use Topics Alcohol use: Yes Drug use: No EXAM: LMP 08/13/2021 Limited exam as visit was completed over the virtual platform. Virtual visit completed using video, limited exam completed. Patient sounds or appears ill: No General Appearance: Well appearing, alert, in no acute distress, well-hydrated, well nourished. Skin: Skin color normal Head: Normocephalic. No facial swelling or redness. EENT: Eyes nonreddened. No discharge. External ears nonreddened and no swelling. Neck: No mass or lesions. No swelling. FROM Patient is unable to speak in complete sentences: No Patient has labored breathing: No. Patient is audibly coughing: No Psych: Attitude - cooperative, easily engaged in conversation Affect - Euthymic, normal mood Mental status: Alert. Speech is clear and fluent with good repetition, comprehension Appearance - Normal hygiene and grooming appropriate Coordination: No abnormal or extraneous movements. Gait/Stance: Posture is normal. Health Maintenance List HEPATITIS B(1 of 3 - 3-dose series) Never done HEPATITIS C SCREENING Never done HIV SCREENING Never done DTAP,TDAP,TD(1 - Tdap) Never done HPV TESTING Never done PAP TESTING due on 06/18/2017 COVID-19 VACCINE(3 - Booster for Pfizer series) due on 11/07/2020 INFLUENZA(1) due on 12/05/2021 Data reviewed Last 5 Encounter BP Readings: Date: BP: 08/23/2021 112/66 12/11/2020 104/70 04/05/2019 100/64 04/04/2019 108/70 12/10/2018 94/68 BMI Readings from Last 5 Encounters: 12/11/20 : 31.26 kg/m? 11/19/20 : 31.69 kg/m? 04/05/19 : 29.18 kg/m? 04/04/19 : 29.35 kg/m? 12/10/18 : 28.84 kg/m? Last 5 Encounter Wt Readings: Date: Wt: 08/23/2021 0 kg () 12/11/2020 83.9 kg (185 lb) 11/19/2020 85 kg (187 lb 8 oz) 04/05/2019 77.1 kg (170 lb) 04/04/2019 77.6 kg (171 lb) Medication and allergy list reviewed, reconciled and updated 06/17/2022 ASSESSMENT/PLAN: 1. Anxiety and depression - ICD9: 300.00, 311, ICD10: F41.9, F32.A (primary diagnosis) Scripts refilled. Will get scheduled back for physical with primary team. She will get fasting labs prior. - ESCITALOPRAM 20 MG TABLET - BUPROPION XL 150 MG TAB - CBC + DIFF - TSH BLD - T4 FREE/FREE THYROX 2. Screening for hyperlipidemia - ICD9: V77.91, ICD10: Z13.220 As above. - LIPID PANEL BASIC - COMP METABOLIC TAVERA (more content not included)... [facility] 06-17-2022 History of Present illness Narrative Chief Complaint Patient presents with: Telemedicine Patient was offered a virtual/telemedicine appointment in lieu of an office visit due to recommendations to reduce patient exposure to COVID-19. Video was used for evaluation of this patient. Patient is aware of limitations of performing the visit without a face to face visit in the office setting and agrees. Patient agrees to the visit: Yes Patient Location: [facility] Emma Poon is a 37 year old female who is contacted today for a virtual visit This is an established patient of Dr. Camilo Colon DO Reports: Pt presents today for a medication check to get medication refills. She is currently taking lexapro and wellbutrin. Refers that she is out of medication for the last two weeks. Refers that her anxiety has been through the roof. Refers that she is going through a divorce the the last couple of weeks. Refers that is always tired. Refers that she has lost about 30# and is more active. Intentional. No SI/HI. No side effects to the medication. Has been contemplating returning to counseling. Past medical history, appointments, medications, allergies reviewed 06/17/2022 Previous Medical History PAST MEDICAL HISTORY Diagnosis Date Anxiety and depression Interstitial cystitis 2009 Previous Surgical History PAST SURGICAL HISTORY Procedure Laterality Date DELIVERY ONLY 2005 , low cervical DELIVERY ONLY 2007 , low cervical DELIVERY ONLY 2013 EXPLORATORY LAPAROTOMY, CELIOTOMY-SP 2012 Family History FAMILY HISTORY Problem Relation Age of Onset None Mother None Father Cancer Maternal Grandfather throat Emphysema Paternal Grandfather Patient Allergies ALLERGIES No Known Allergies Current Medications Current Outpatient Medications on File Prior to Visit Medication Sig escitalopram oxalate (LEXAPRO) 20 mg tablet Take 1 tablet by mouth once daily. 1 tablet PO once daily buPROPion XL (WELLBUTRIN XL) 150 mg 24 hr tablet Take 1 tablet by mouth once daily. cyclobenzaprine (FLEXERIL) 10 mg tablet Take 1 tablet by mouth three times daily as needed for Muscle Spasm. (Patient not taking: Reported on 08/23/2021 ) No current facility-administered medications on file prior to visit. Social History Social History Tobacco Use Smoking status: Never Smokeless tobacco: Never Tobacco comments: vaping Substance Use Topics Alcohol use: Yes Drug use: No EXAM: LMP 08/13/2021 Limited exam as visit was completed over the virtual platform. Virtual visit completed using video, limited exam completed. Patient sounds or appears ill: No General Appearance: Well appearing, alert, in no acute distress, well-hydrated, well nourished. Skin: Skin color normal Head: Normocephalic. No facial swelling or redness. EENT: Eyes nonreddened. No discharge. External ears nonreddened and no swelling. Neck: No mass or lesions. No swelling. FROM Patient is unable to speak in complete sentences: No Patient has labored breathing: No. Patient is audibly coughing: No Psych: Attitude - cooperative, easily engaged in conversation Affect - Euthymic, normal mood Mental status: Alert. Speech is clear and fluent with good repetition, comprehension Appearance - Normal hygiene and grooming appropriate Coordination: No abnormal or extraneous movements. Gait/Stance: Posture is normal. Health Maintenance List HEPATITIS B(1 of 3 - 3-dose series) Never done HEPATITIS C SCREENING Never done HIV SCREENING Never done DTAP,TDAP,TD(1 - Tdap) Never done HPV TESTING Never done PAP TESTING due on 06/18/2017 COVID-19 VACCINE(3 - Booster for Pfizer series) due on 11/07/2020 INFLUENZA(1) due on 12/05/2021 Data reviewed Last 5 Encounter BP Readings: Date: BP: 08/23/2021 112/66 12/11/2020 104/70 04/05/2019 100/64 04/04/2019 108/70 12/10/2018 94/68 BMI Readings from Last 5 Encounters: 12/11/20 : 31.26 kg/m 11/19/20 : 31.69 kg/m 04/05/19 : 29.18 kg/m 04/04/19 : 29.35 kg/m 12/10/18 : 28.84 kg/m Last 5 Encounter Wt Readings: Date: Wt: 08/23/2021 0 kg () 12/11/2020 83.9 kg (185 lb) 11/19/2020 85 kg (187 lb 8 oz) 04/05/2019 77.1 kg (170 lb) 04/04/2019 77.6 kg (171 lb) Medication and allergy list reviewed, reconciled and updated 06/17/2022 ASSESSMENT/PLAN: 1. Anxiety and depression - ICD9: 300.00, 311, ICD10: F41.9, F32.A (primary diagnosis) Scripts refilled. Will get scheduled back for physical with primary team. She will get fasting labs prior. - ESCITALOPRAM 20 MG TABLET - BUPROPION XL 150 MG TAB - CBC + DIFF - TSH BLD - T4 FREE/FREE THYROX 2. Screening for hyperlipidemia - ICD9: V77.91, ICD10: Z13.220 As above. - LIPID PANEL BASIC - COMP METABOLIC PANEL Discussed treatment plan and patient voices understanding. Patient's questions answered appropriately. Medications and potential side effects were discussed and patient voices understanding. Return to the office as scheduled or as needed for worsening/no improvement. Imelda Lafleur APRN.POWDER CUTTING OPERATOR documented in this encounter [facility] 08-23-2021 History of Present illness Narrative Images from the original note were not included. Subjective Patient came in with complaints of left side upper jaw pain. Patient said she does have a lot of trouble with her teeth and is at the dentist often. Patient said its painful and she noticing some swelling at this point. Been going on for 3 days. deneis fevers or any other symptoms at this time. The history is provided by the patient. No specialized language instructor was used. Dental Problem Review of Systems Constitutional: Negative. Skin: Negative. Objective Physical Exam Constitutional: Appearance: Normal appearance. HENT: Mouth/Throat: Comments: Minimal redness noted in area marked. Tender on palpation Pulmonary: Effort: Pulmonary effort is normal. Neurological: Mental Status: She is alert. PAST MEDICAL HISTORY Diagnosis Date Anxiety and depression Interstitial cystitis 2009 PAST SURGICAL HISTORY Procedure Laterality Date DELIVERY ONLY 2004 , low cervical DELIVERY ONLY 2006 , low cervical DELIVERY ONLY 2012 EXPLORATORY LAPAROTOMY, CELIOTOMY-SP 2011 ALLERGIES Patient has no known allergies. MEDICATIONS escitalopram oxalate (LEXAPRO) 20 mg tablet Take 1 tablet by mouth once daily. 1 tablet PO once daily buPROPion XL (WELLBUTRIN XL) 150 mg 24 hr tablet Take 1 tablet by mouth once daily. penicillin V potassium (V-CILLIN, VEETIDS) 500 mg tablet Take 1 tablet by mouth four times daily for 5 days. cyclobenzaprine (FLEXERIL) 10 mg tablet Take 1 tablet by mouth three times daily as needed for Muscle Spasm. FAMILY HISTORY Problem Relation Age of Onset None Mother None Father Cancer Maternal Grandfather throat Emphysema Paternal Grandfather Social History Tobacco Use Smoking status: Never Smoker Smokeless tobacco: Never Used Tobacco comment: vaping Substance Use Topics Alcohol use: Yes Drug use: No ASSESSMENT/PLAN: 1. Pain, dental - ICD9: 525.9, ICD10: K08.89 Will follow up with her dentist. amoxicillin v prescribed 5 days. Patient will go to the ER if anything worsens. Patient was okay with this care plan. Arline Booth APRN.CNP documented in this encounter [facility] Anxiety and depression Dysthymic disorder [facility] [place] [facility] Diagnosis Anxiety and depression- Primary Dysthymic disorder Screening for hyperlipidemia Screening for lipoid disorders documented in this encounter [facility] note* Diagnosis Pannus, abdominal- Primary Localized adiposity Candidiasis Candidiasis of unspecified site documented in this encounter [facility] note* Diagnosis Excess skin- Primary Pannus, abdominal Localized adiposity Intertrigo Other specified erythematous condition Lower abdominal pain Abdominal pain, other specified site [facility] [place] [facility]* Diagnosis Screening for tuberculosis- Primary Screening examination for pulmonary tuberculosis documented in this encounter [facility] Reason for Referral Specialty Diagnoses / Procedures Referred By Contac t Referred To Contact Plastic Surgery Diagnoses Pannus, abdominal Procedures CONSULT TO PLASTIC SURGERY OFFICE/OUTPATIENT [facility] 60-74 MINUTES Yordy De Anda MD [address] [place] [address] Referral ID Status Reason Start Date Expiration Date Visits Requested Visits Authorized [id number] Authorized PCP Requested Referral 10/14/2022 10/14/2023 1 1 Specialty Diagnoses / Procedures Referred By Contac t Referred To Contact CT IMAGING Diagnoses Pannus, abdominal Excess skin Intertrigo Lower abdominal pain Procedures CT ABD/PEL WO IVCON CT ABD & PELVIS W/O CONTRAST Vanessa Luna APRN.CNP [address] [place] [address] Ct Imaging Referral ID Status Reason Start Date Expiration Date Visits Requested Visits Authorized [id number] Pending Review Auto-Generat ed Referral 11/11/2022 12/11/2023 1 1 Specialty Diagnoses / Procedures Referred By Contac t Referred To Contact Diagnoses Pannus, abdominal Excess skin Intertrigo Lower abdominal pain Procedures REFER TO PACC - PRE ANESTHESIA CONSULTATION CLINIC OFFICE/OUTPATIENT NEW HIGH MDM 60-74 MINUTES Vanessa Luna APRN.POWDER CUTTING OPERATOR [address] [place] [address] Referral ID Status Reason Start Date Expiration Date V isits Requested Visits Authorized [id number] Authorized 11/11/2022 02/09/2023 1 1 Summary Purpose Family History No Family History Records Found Advance Directives No Advanced Directives Records Found Additional Source Comments Source Comments (unrecognize d section and content) In the event this informatio n is protected by the Federal Confidentiality of Alcohol and Drug Abuse Patient Records regulations: The Federal rules restrict any use of the information to criminally investigate or prosecute any alcohol or drug abuse patient.[facility] event this information is protected by the Federal Confidentiality of Alcohol and Drug Abuse Patient Records regulations: The Federal rules restrict any use of the information to criminally investigate or prosecute any alcohol or drug abuse patient.[facility] the event this information is protected by the Federal Confidentiality of Alcohol and Drug Abuse Patient Records regulations: The Federal rules restrict any use of the information to criminally investigate or prosecute any alcohol or drug abuse patient.[facility]In the event this information is protected by the Federal Confidentiality of Alcohol and Drug Abuse Patient Records regulations: The Federal rules restrict any use of the information to criminally investigate or prosecute any alcohol or drug abuse patient.[facility] the event this information is protected by the Federal Confidentiality of Alcohol and Drug Abuse Patient Records regulations: The Federal rules restrict any use of the information to criminally investigate or prosecute any alcohol or drug abuse patient.[facility] the event this information is protected by the Federal Confidentiality of Alcohol and Drug Abuse Patient Records regulations: The Federal rules restrict any use of the information to criminally investigate or prosecute any alcohol or drug abuse patient.[facility] the event this information is protected by the Federal Confidentiality of Alcohol and Drug Abuse Patient Records regulations: The Federal rules restrict any use of the information to criminally investigate or prosecute any alcohol or drug abuse patient.[facility]In the event this information is protected by the Federal Confidentiality of Alcohol and Drug Abuse Patient Records regulations: The Federal rules restrict any use of the information to criminally investigate or prosecute any alcohol or drug abuse patient.[facility]In the event this information is protected by the Federal Confidentiality of Alcohol and Drug Abuse Patient Records regulations: The Federal rules restrict any use of the information to criminally investigate or prosecute any alcohol or drug abuse patient.[facility]In the event this information is protected by the Federal Confidentiality of Alcohol and Drug Abuse Patient Records regulations: The Federal rules restrict any use of the information to criminally investigate or prosecute any alcohol or drug abuse patient.[facility]In the event this information is protected by the Federal Confidentiality of Alcohol and Drug Abuse Patient Records regulations: The Federal rules restrict any use of the information to criminally investigate or prosecute any alcohol or drug abuse patient.[facility] Reason for Visit (unrecogniz ed section and content) Reason Comments Refill Request Reason Comments Telemedicine Reason Comments Results Reason Comments Consult Reason Comments Consult Specialty Diagnoses / Procedures Referred By Contac t Referred To Contact Plastic Surgery Diagnoses Pannus, abdominal Procedures CONSULT TO PLASTIC SURGERY OFFICE/OUTPATIENT [facility] 60-74 MINUTES Yordy De Anda MD [address] [place] [address] Referral ID Status Reason Start Date Expiration Date V isits Requested Visits Authorized [id number] Closed PCP Requested Referral 10/14/2022 10/14/2023 1 1 Reason Comments Forms Care Teams (unrecognized sec tion and content) [employer] Operator Relationship Specialty Start Date End Date Camilo Colon DO [address] [place] [address] PCP - General Family Medicine 04/13/15 [employer] Operator Relationship Specialty Start Date End Date Camilo Colon DO [address] [place], [place] [id number] PCP - General Family Medicine 04/13/15 [employer] Operator Relationship Specialty Start Date End Date Camilo Colon DO [address] [place] [address] PCP - General Family Medicine 04/13/15 [employer] Operator Relationship Specialty Start Date End Date Camilo Colon DO [address], [place] [address] PCP - General Family Medicine 04/13/15 [employer] Operator Relationship Specialty Start Date End Date Camilo Colon DO [address] [place] [address] PCP - General Family Medicine 04/13/15 [employer] Operator Relationship Specialty Start Date End Date Camilo Colon DO [address] [place] [address] PCP - General Family Medicine 04/13/15 [employer]isaw Operator Relationship Specialty Start Date End Date Camilo Colon DO [address] [place] [address] PCP - [facility] Medicine 04/13/15 Unisaw Operator Relationship Specialty Start Date End Date Camilo Colon DO [address] [place] [address] PCP - [facility] Medicine 04/13/15 [employer]is[employer] Operator Relationship Specialty Start Date End Date Camilo Colon DO [address] [place] [address] PCP - General Family Medicine 04/13/15 [employer] Operator Relationship Specialty Start Date End Date Camilo Colon DO [address] [place] [address] PCP - General Family Medicine 04/13/15 INFORMATION SOURCE (unrecogn ized section and content) FOR RECORDS PERTAINING TO PATIENTS WHO ARE OR HAVE BEEN ENROLLED IN A CHEMICAL DEPENDENCY/SUBSTANCEABUSE PROGRAM, SOME INFORMATION MAY BE OMITTED. This clinical summary was aggregated from multiple sources. Caution should be exercised in using it in the provision of clinical care. This summary normalizes information from multiple sources, and as a consequence, information in this document may materially change the coding, format and clinical context of patient data. In addition, data may be omitted in some cases. CLINICAL DECISIONS SHOULD BE BASED ON THE PRIMARY CLINICAL RECORDS. [facility] [employer] [facility]. provides no warranty or guarantee of the accuracy or completeness of information in this document.
--- NOTE | 2023-04-20 17:50 | RAD_ITS ---
EXAM: XR LEFT KNEE COMPLETE, 4 OR MORE VIEWS CLINICAL INDICATION: pain TECHNIQUE: Four or more views of the left knee. COMPARISON: 04/25/2022 FINDINGS: BONES/JOINTS: No significant abnormality. No acute fracture. No subluxation. Normal alignment. Preservation of the joint space. No sclerotic or destructive changes observed. SOFT TISSUES: No significant abnormality. No soft tissue swelling or gas. No radiopaque foreign body. RAD/Knee 4 or More Views IMPRESSION: Negative left knee x-rays. Electronically Signed: Eagle Charles DO at 18:18 EST ,
[2023-04-20 18:30] VITALS: PULSE 82; RESP 14; O2SAT 100
[2023-04-20] MEDS: Acetaminophen 500 MG Tablet 1000 MG PO (18:32)
[2023-04-20] MEDS: Ibuprofen 200 MG Tablet 600 MG PO (18:32)
== END 2023-04-20 18:49 | disposition home or self-care (01) ==
PROVIDERS: Emergency Provider Emergency Medicine; PCP Student in an Organized Health Care Education/Training Program; Visit Provider Emergency Medicine
DX: S20.20XA Contusion of thorax, unspecified, initial encounter (principal); M25.561 Pain in right knee; M25.562 Pain in left knee; F17.290 Nicotine dependence, other tobacco product, uncomplicated; V53.5XXA Driver of pick-up truck or van injured in collision with car, pick-up truck or van in traffic accident, initial encounter; W22.10XA Striking against or struck by unspecified automobile airbag, initial encounter; Y92.410 Unspecified street and highway as the place of occurrence of the external cause; M79.10 Myalgia, unspecified site
CPT/HCPCS: 70450; 71260; 72125; 72128; 72131; 73564; 74177; 96361; 96374; 96375; 99284; J7030; Q9967; A4216; J2405